=== PATIENT | male | born 1990 ===

== ENCOUNTER 2018-07-16 00:34 | Emergency (ER) | payer SELFPAY ==
--- NOTE | 2018-07-16 02:24 | C.PDOC ---
History Of Present Illness 28 year old male found at [facility] by police intoxicated in public. No report of trauma or injury. <SauloNavdeep - Last Filed: 07/16/18 02:24> History Per: Patient History/Exam Limitations: no limitations Onset/Duration Of Symptoms: Hrs Current Symptoms Are (Timing): Still Present Modifying Factor(s): Alcohol Recent travel outside of the [place]: No Additional History Per: Law Enforcement <SauloNavdeep - Last Filed: 07/16/18 02:24> <Nish White - Last Filed: 07/16/18 04:01> Chief Complaint (Nursing): Substance Abuse Past Medical History Reviewed: Historical Data, Nursing Documentation, Vital Signs Vital Signs: Last Vital Signs Temp 98 F 07/16/18 00:53 Pulse 72 07/16/18 00:53 Resp 20 07/16/18 00:53 BP 127/79 07/16/18 00:53 Pulse Ox 100 07/16/18 00:53 Family History: States: Unknown Family Hx - Social History Hx Alcohol Use: Yes Hx Substance Use: No <SauloNavdeep - Last Filed: 07/16/18 02:24> Vital Signs: Last Vital Signs Temp 98 F 07/16/18 00:53 Pulse 72 07/16/18 00:53 Resp 07/16/18 00:53 BP 127/79 07/16/18 00:53 Pulse Ox 100 07/16/18 02:30 <Nish White - Last Filed: 07/16/18 04:01> Review Of Systems Constitutional: Negative for: Fever, Chills Eyes: Negative for: Pain, Redness ENT: Negative for: Mouth Swelling Cardiovascular: Negative for: Chest Pain Respiratory: Negative for: Cough, Shortness of Breath Gastrointestinal: Negative for: Nausea, Vomiting, Diarrhea Genitourinary: Negative for: Dysuria, Hematuria Musculoskeletal: Negative for: Back Pain Skin: Negative for: Rash Neurological: Negative for: Weakness, Numbness, Dizziness <SauloNavdeep - Last Filed: 07/16/18 02:24> Physical Exam - Physical Exam Appears: Well, Non-toxic, No Acute Distress, Other (Sleeping, easily arousable, no sign of trauma, vitals stable) Skin: Normal Color, Warm, Other (No abrasions or injuries) Head: Atraumatic, Normacephalic Eye(s): bilateral: Normal Inspection, PERRL, EOMI Ear(s): Bilateral: Normal Nose: Normal Oral Mucosa: Moist Neck: Normal ROM, Supple Chest: Symmetrical, Other (Rises equally and bilaterally) Cardiovascular: Rhythm Regular Respiratory: No Accessory Muscle Use, Other (Normal inspiratory effort) Gastrointestinal/Abdominal: Soft, No Tenderness Extremity: Bilateral: Atraumatic Neurological/Psych: Oriented x3, Normal Speech, Normal Cranial Nerves (Grossly intact) <SauloNavdeep Last Filed: 07/16/18 02:24> ED Course And Treatment O2 Sat by Pulse Oximetry: 100 (Room air) Pulse Ox Interpretation: Normal <SauloNavdeep Filed: 07/16/18 02:24> Pulse Ox Interpretation: Normal Reevaluation Time: 04:00 Reassessment Condition: Improved <Nish White - Last Filed: 07/16/18 04:01> Medical Decision Making Medical Decision Making: Will allow to sleep until sober. <SauloNavdeep Turcios Last Filed: 07/16/18 02:24> Disposition <SauloNavdeep Filed: 07/16/18 02:24> Counseled Patient/Family Regarding: Studies Performed, Diagnosis, Need For Followup - Disposition Disposition Time: 01:00 <Nish White Karolina Last Filed: 07/16/18 04:01> - Disposition Referrals: [facility] [Outside] Disposition: HOME/ ROUTINE Condition: FAIR Instructions: Alcohol Abuse and Alcoholism (DC) Forms: [facility] [employer] (Latvian) - Clinical Impression Clinical Impression: Alcohol intoxication - PA / [employer] / Resident Statement MD/DO has reviewed & agrees with the documentation as recorded. - Scribe Statement The provider has reviewed the documentation as recorded by the Scribe Akash Greer All medical record entries made by the Scribe were at my direction and personally dictated by me. I have reviewed the chart and agree that the record accurately reflects my personal performance of the history, physical exam, medical decision making, and the department course for this patient. I have also personally directed, reviewed, and agree with the discharge instructions and disposition. <Navdeep Vernon - Last Filed: 07/16/18 02:24>
[2018-07-16 04:42] VITALS: BP 117/75; PULSE 75; RESP 17; TEMP 97.6; O2SAT 96
== END 2018-07-16 04:20 | disposition home or self-care (01) ==
LOC: C.ER 00:34
DX: F10.129 Alcohol abuse with intoxication, unspecified (principal); Y90.9 Presence of alcohol in blood, level not specified